=== PATIENT | female | born 1995 | race Two or more races ===

== ENCOUNTER 2022-12-13 10:26 | Emergency (ER) | payer OTHER ==
[~2022-12-13] VITALS: Ht 172.7 cm; Wt 99.8 kg
== END 2022-12-13 15:36 | disposition home or self-care (01) ==
LOC: ER 10:26
DX: B34.9 Viral infection, unspecified (principal); R53.81 Other malaise; R11.10 Vomiting, unspecified

== ENCOUNTER 2023-09-30 09:18 | Emergency (ER) | payer OTHER ==
[~2023-09-30] VITALS: Ht 172.7 cm; Wt 95.3 kg
[2023-09-30] MEDS ORDERED: KETOROLAC TROMETHAMINE 60 MG VIAL IM ONE (11:00)
[2023-09-30 11:56] LABS: HEMATOCRIT 34.8 % (36.0-45.00); MEAN CELL VOLUME 73.3 fL (80.00-100.00); MEAN CORPUSCULAR HEMOGLOBIN 23.3 pg (27.00-32.0); MEAN CORPUSCULAR HGB CONC 31.8 g/dl (32.0-36.0); PLATELET COUNT 395 K/uL (150-450); RED BLOOD COUNT 4.75 M/uL (4.00-6.00); RED CELL DISTRIBUTION WIDTH 15.8 % (11.5-14.5)
== END 2023-09-30 12:44 | disposition home or self-care (01) ==
LOC: ER 09:19
PROVIDERS: General Practice
DX: R51.9 Headache, unspecified (principal); D64.9 Anemia, unspecified

== ENCOUNTER 2024-10-06 19:31 | Emergency (ER) | payer OTHER ==
[~2024-10-06] VITALS: Ht 172.7 cm; Wt 94.8 kg
[~2024-10-06 19:31] MED LIST: PROAIR RESPICL90 MCG
[2024-10-06] MEDS ORDERED: METHYLPREDNISOLONE SOD SUCC 40 MG VIAL IM STA (20:38)
[2024-10-06] MEDS ORDERED: ACETAMINOPHEN 325 MG TABLET PO STA (20:38)
[2024-10-06] MEDS ORDERED: IPRATROPIUM/ALBUTEROL SULFATE 3 ML AMPUL.NEB IH SCH (20:45)
[2024-10-06] MEDS ORDERED: ACETAMINOPHEN 500 MG GEL..CAP PO ONE (21:20)
[2024-10-06] MEDS ORDERED: METHYLPREDNISOLONE SOD SUCC 40 MG VIAL ONE (21:20)
[2024-10-06] MEDS ORDERED: IPRATROPIUM/ALBUTEROL SULFATE 3 ML AMPUL.NEB IH ONE (21:47)
[2024-10-06 21:53] LABS: HEMATOCRIT 30.8 % (36.0-45.00); HEMOGLOBIN 10.2 g/dL (12.0-15.00); MEAN CELL VOLUME 71.7 fL (80.00-100.00); MEAN CORPUSCULAR HEMOGLOBIN 23.7 pg (27.00-32.0); MEAN CORPUSCULAR HGB CONC 33.1 g/dl (32.0-36.0); PLATELET COUNT 329 K/uL (150-450); RED CELL DISTRIBUTION WIDTH 17.2 % (11.5-14.5)
[2024-10-06] MEDS ORDERED: CEFTRIAXONE SODIUM 1,000 MG VIAL IM STA (22:21)
[2024-10-06] MEDS ORDERED: CEFTRIAXONE SODIUM 1,000 MG VIAL ONE (22:41)
== END 2024-10-06 22:55 | disposition home or self-care (01) ==
LOC: ER 19:34
DX: J06.9 Acute upper respiratory infection, unspecified (principal); J45.909 Unspecified asthma, uncomplicated; Z20.822 Contact with and (suspected) exposure to COVID-19
CPT/HCPCS: 36415; 94640; 96372; 99284; J0696; J3490

== ENCOUNTER 2025-02-28 10:12 | Emergency (ER) | payer OTHER ==
[~2025-02-28] VITALS: Ht 172.7 cm; Wt 93.4 kg
[2025-02-28 11:21] VITALS: BP 105/70; O2SAT 100
[2025-02-28] MEDS ORDERED: KETOROLAC TROMETHAMINE 60 MG VIAL IM ONE ×2 (13:26→13:30)
[2025-02-28] MEDS ORDERED: IPRATROPIUM/ALBUTEROL SULFATE 3 ML AMPUL.NEB IH SCH (13:30)
[2025-02-28] MEDS ORDERED: BUDESONIDE 0.5 MG/2 ML AMPUL.NEB IH ONE ×2 (13:30→14:01)
[2025-02-28] MEDS ORDERED: IPRATROPIUM/ALBUTEROL SULFATE 3 ML AMPUL.NEB IH ONE (14:01)
[2025-02-28] MEDS ORDERED: ALBUTEROL2.5 MG/3 M IH (14:11)
[2025-02-28] MEDS ORDERED: MEDROLPACK PO (14:11)
[2025-02-28] MEDS ORDERED: DICLOFENAC SODI75 MG PO (14:11)
[2025-02-28] MEDS ORDERED: ZYRTEC10 M3 PO (14:38)
[2025-02-28] MEDS ORDERED: SINGULAIR10 MG PO (14:38)
== END 2025-02-28 14:49 | disposition home or self-care (01) ==
LOC: ER 10:12
DX: J45.909 Unspecified asthma, uncomplicated (principal); M94.0 Chondrocostal junction syndrome [Tietze]; R05.9 Cough, unspecified; R06.02 Shortness of breath; R07.82 Intercostal pain

== ENCOUNTER 2025-07-12 20:26 | Emergency (ER) | payer OTHER ==
[~2025-07-12] VITALS: Ht 172.7 cm; Wt 88.0 kg
[~2025-07-12 20:26] MED LIST changes: +ALBUTEROL2.5 MG/3 M IH; +DICLOFENAC SODI75 MG PO; +MEDROLPACK PO; +SINGULAIR10 MG PO; +ZYRTEC10 M3 PO
[2025-07-12] MEDS ORDERED: IPRATROPIUM/ALBUTEROL SULFATE 3 ML AMPUL.NEB IH SCH (21:30)
[2025-07-12] MEDS ORDERED: GUAIFEN/DEXTROMETHORPHAN/PE 10 ML BLIST.PACK PO ONE (21:45)
[2025-07-12] MEDS ORDERED: BUDESONIDE 0.5 MG/2 ML AMPUL.NEB IH ONE (21:45)
[2025-07-12] MEDS ORDERED: METHYLPREDNISOLONE SOD SUCC 125 MG VIAL IV ONE (21:45)
[2025-07-12] MEDS ORDERED: BENZONATATE 100 MG CAPSULE PO ONE (22:45)
== END 2025-07-13 06:54 | disposition home or self-care (01) ==
LOC: ER 20:26
DX: J45.901 Unspecified asthma with (acute) exacerbation (principal); J45.909 Unspecified asthma, uncomplicated; R06.02 Shortness of breath; R05.8 Other specified cough

== ENCOUNTER 2025-07-20 17:58 | Inpatient (IN) | payer OTHER ==
[~2025-07-20] VITALS: Ht 172.7 cm; Wt 88.5 kg
--- NOTE | 2025-07-20 19:14 | NUR ---
SE RECIBE PACIENTE ALERTA Y ORIENTADA X3. PACIENTE REFIERE TOS SECA PERSISTENTE Y DOLOR TORAXICO.
[2025-07-20] MEDS ORDERED: MAGNESIUM SULFATE IN WATER 50 ML IV ONE (19:30)
[2025-07-20] MEDS ORDERED: FAMOtidine 10 MG/ML (4ML VIAL) IV ONE (19:30)
[2025-07-20] MEDS ORDERED: LEVALBUTEROL HCL 1.25 MG/3 ML SOLUTION IH ONE (19:44)
[2025-07-20] MEDS ORDERED: IPRATROPIUM BROMIDE 0.5 MG/2.5 ML AMPUL.NEB IH ONE (19:44)
[2025-07-20] MEDS ORDERED: IPRATROPIUM BROMIDE 0.5 MG/2.5 ML AMPUL.NEB IH SCH (19:45)
[2025-07-20] MEDS ORDERED: LEVALBUTEROL HCL 1.25 MG/3 ML SOLUTION IH SCH (19:45)
[2025-07-20] MEDS ORDERED: METHYLPREDNISOLONE SOD SUCC 125 MG VIAL IV ONE (19:45)
[2025-07-20] MEDS ORDERED: BENZONATATE 200 MG CAPSULE PO ONE (19:45)
[2025-07-20] MEDS ORDERED: CEFTRIAXONE SODIUM 1,000 MG VIAL IV ONE (19:45)
[2025-07-20] MEDS ORDERED: MAGNESIUM SULFATE 50% 1,000 MG/2 ML VIAL ONE (20:25)
[2025-07-20] MEDS ORDERED: METHYLPREDNISOLONE SOD SUCC 125 MG VIAL ONE (20:25)
[2025-07-20] MEDS ORDERED: FAMOTIDINE/PF 20 MG/2 ML VIAL ONE (20:26)
[2025-07-20] MEDS ORDERED: CEFTRIAXONE SODIUM 1,000 MG VIAL ONE (20:26)
[2025-07-20 21:24] LABS: BASO % 0.8 % (0.1-1.2); EOS # 0.10 (0.04-0.54); EOS % 2.6 % (0.7-7.0); LYMPH # 0.52 (1.18-3.74); LYMPH % 13.5 % (19.3-53.1); MEAN PLATELET VOLUME 9.40 fl (9.4-12.4); MONO # 0.53 (0.24-0.82); NEUT # 2.67 (1.56-6.13); NEUT % 69.1 % (34.0-71.1); RED CELL DISTRIBUTION WIDTH 16.5 % (11.6-14.4)
[2025-07-20 21:26] LABS: MONO % 13.7 % (4.7-12.5)
--- NOTE | 2025-07-20 21:32 | NUR ---
SE ORIENTA PACIENTE SOBRE TX MEDICO Y BRIDGET REFIERE ENTENDER Y ACEPTAR EL MSIMO. SE PROCEDE A RICKY MUESTRAS DE LAB BAJO MEIDDAS ASEPTICAS. SE PROCEDE A CANALIZAR PACIENTE BAJO MEDIDAS ASEPTICAS, JANAY DE EDEMA Y ERITEMA. SE PROCEDE A ADMINISTRAR MEDICAMENTO YOANNA ORDEN MEDICA BAJO MEIDDAS ASEPTICAS.
[2025-07-20 21:44] LABS: ALT/SGPT 28 U/L (12-78); AST/SGOT 18 U/L (15-37); BILIRUBIN TOTAL 1.02 mg/dL (0.3-1.2); BUN CREA RATIO 18 (7.0-25.0); CREATININE SERUM 0.72 mg/dL (0.55-1.02); GFR 95.11; GLOBULINA 3.8 G/DL (2.4-3.5); GLUCOSE FASTING 114 mg/dL (65-100); OSMOLALITY SERUM 279 MOSM/KG (275-295)
[2025-07-20 21:54] LABS: COVID-19 AG NEGATIVE (NEGATIVE)
[2025-07-20 22:23] LABS: HCG QUANTITATIVE < 1 mUI/mL (1-3)
[2025-07-20] MEDS ORDERED: AZITHROMYCIN 500 MG in DEXTROSE 5 % IN WATER 250 ML IV SCH (22:27)
[2025-07-20] MEDS ORDERED: METHYLPREDNISOLONE SOD SUCC 40 MG VIAL IV SCH (22:28)
[2025-07-20] MEDS ORDERED: MONTELUKAST SODIUM 10 MG TABLET PO SCH (22:28)
[2025-07-20] MEDS ORDERED: FAMOTIDINE/PF 20 MG in 0.9 % SODIUM CHLORIDE 8 ML IV PUSH SCH (22:28)
[2025-07-20] MEDS ORDERED: ACETAMINOPHEN 500 MG GEL..CAP PO PRN (22:30)
[2025-07-20] MEDS ORDERED: 0.9 % SODIUM CHLORIDE 1,000 ML IV SCH (22:30)
[2025-07-20] MEDS ORDERED: IPRATROPIUM/ALBUTEROL SULFATE 3 ML AMPUL.NEB IH SCH (22:30)
[2025-07-20] MEDS ORDERED: ONDANSETRON HCL 4 MG in 0.9 % SODIUM CHLORIDE 50 ML IV PRN (22:30)
[2025-07-20] MEDS ORDERED: GUAIFEN/DEXTROMETHORPHAN/PE 10 ML BLIST.PACK PO SCH (22:31)
[2025-07-21] MEDS ORDERED: GUAIFEN/DEXTROMETHORPHAN/PE 10 ML BLIST.PACK PO ONE (00:28)
[2025-07-21] MEDS ORDERED: AZITHROMYCIN 500 MG VIAL IV ONE ×2 (00:28→21:15)
[2025-07-21] MEDS ORDERED: MONTELUKAST SODIUM 10 MG TABLET PO ONE (00:28)
[2025-07-21] MEDS ORDERED: FAMOTIDINE/PF 20 MG/2 ML VIAL ONE (00:28)
[2025-07-21] MEDS ORDERED: METHYLPREDNISOLONE SOD SUCC 40 MG VIAL ONE (00:28)
[2025-07-21 04:39] LABS: INR 1.0
[2025-07-21 08:00] VITALS: BP 107/71; O2SAT 100
[2025-07-21 16:57] VITALS: BP 104/65; O2SAT 100
[2025-07-21] MEDS ORDERED: AZITHROMYCIN 500 MG VIAL IV SCH (21:00)
[2025-07-22] VITALS: BP 105/65; O2SAT 98
[2025-07-22 06:44] LABS: BASO % 0.2 % (0.1-1.2); EOS # 0.00 (0.04-0.54); EOS % 0.0 % (0.7-7.0); LYMPH # 0.37 (1.18-3.74); LYMPH % 7.5 % (19.3-53.1); MEAN PLATELET VOLUME 9.40 fl (9.4-12.4); MONO # 0.27 (0.24-0.82); MONO % 5.5 % (4.7-12.5); NEUT # 4.27 (1.56-6.13); NEUT % 86.6 % (34.0-71.1); RED CELL DISTRIBUTION WIDTH 17.0 % (11.6-14.4)
[2025-07-22 07:30] VITALS: BP 125/67; O2SAT 97
[2025-07-22 07:58] LABS: ALT/SGPT 27.0 U/L (12-78); AST/SGOT 11.0 U/L (15-37); BILIRUBIN TOTAL 0.38 mg/dL (0.3-1.2); BUN CREA RATIO 14.0 (7.0-25.0); CREATININE SERUM 0.56 mg/dL (0.55-1.02); GFR 127.11; GLOBULINA 3.7 G/DL (2.4-3.5); GLUCOSE FASTING 149.0 mg/dL (65-100); OSMOLALITY SERUM 281.0 MOSM/KG (275-295)
[2025-07-22] MEDS ORDERED: AZITHROMYCIN 500 MG VIAL IV ONE (15:41)
[2025-07-22 16:58] VITALS: BP 115/72
[2025-07-22] MEDS ORDERED: METHYLPREDNISOLONE SOD SUCC 40 MG VIAL IV SCH (17:00)
[2025-07-23 00:44] VITALS: BP 111/64; O2SAT 100
[2025-07-23 08:00] VITALS: BP 109/71; O2SAT 99
== END 2025-07-23 14:27 | disposition home or self-care (01) | DRG 203 ==
LOC: ER 17:59 → SURH 22:29
PROVIDERS: General Practice; Internal Medicine Infectious Disease; ADMIT Internal Medicine; ATTEND Internal Medicine
PROC: 3E0F7GC Introduction of Other Therapeutic Substance into Respiratory Tract, Via Natural or Artificial Opening (ICD-10-PCS; principal; 2025-07-20)
PROC: 4A033R1 Measurement of Arterial Saturation, Peripheral, Percutaneous Approach (ICD-10-PCS; 2025-07-20)
PROC: BB24ZZZ Computerized Tomography (CT Scan) of Bilateral Lungs (ICD-10-PCS; 2025-07-20)
DX: J45.901 Unspecified asthma with (acute) exacerbation (principal); J45.41 Moderate persistent asthma with (acute) exacerbation; Z78.9 Other specified health status